=== PATIENT | male | born 1975 | race Caucasian/White ===

== ENCOUNTER → 2016-08-19 09:22 | Emergency (ER) | payer OTHER ==
[~2016-08-19 09:22] MED LIST: Amoxicillin/Clavulanate TAB* 875 MG PO ONE; Ketorolac INJ* 60 MG/2 ML VIAL IM ONE; Ketorolac INJ* 60 MG/2 ML VIAL ONE; Ondansetron ODT TAB* 4 MG PO ONE; oxyCODONE/Acetamin 5/325 MG* TAB PO ONE
--- NOTE | 2016-08-19 09:51 | ED ---
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 It became embedded in his palm and the tip came out at his wrist. His tetanus is up to date and he denies N/T. He is able to move the digits of the hand. - History of Current Complaint Chief Complaint: EDExtremityUpper Stated Complaint: EXTREMITY UPPER Time Seen by Provider: 08/19/16 09:28 Hx Obtained From: Patient Mechanism Of Injury: Direct Blow Onset/Duration: Started Minutes Ago Timing: Constant Severity Initially: Severe Severity Currently: Severe Pain Location: Hand Character: Sharp, Aching Aggravating Factor(s): Movement Alleviating Factor(s): Nothing Associated Signs & Symptoms: Positive: Negative Related History: Dominant Hand Right - Allergies/Home Medications Allergies/Adverse Reactions: Allergies Allergy/AdvReac Type Severity Reaction Status Date / Time glue Allergy Rash Uncoded 08/19/16 11:32 PMH/Surg Hx/FS Hx/Imm Hx Previously Healthy: Yes Infectious Disease History: No Infectious Disease History: Denies: Traveled Outside the [place] in Last 30 Days - Family History Known Family History: Positive: None - Social History Occupation: Employed Full-time Lives: With Family Alcohol Use: Occasionally Substance Use Type: Reports: None Smoking Status (MU): Never Smoked Tobacco Review of Systems Positive: Myalgia Positive: Other - nail into left palm, exiting on dorsom of wrist. Negative: Paresthesia, Numbness All Other Systems Reviewed And Are Negative: Yes Physical Exam Triage Information Reviewed: Yes Vital Signs On Initial Exam: Initial Vitals Temp 97.6 F 08/19/16 09:24 Vital Signs Reviewed: Yes Appearance: Positive: Well-Appearing, Well-Nourished, Pain Distress Skin: Positive: Warm, Skin Color Reflects Adequate Perfusion, Dry, Tender - nail into left palm, exiting on dorsum of wrist, Soft Head/Face: Positive: Normal Head/Face Inspection Eyes: Positive: EOMI, SUSAN, Conjunctiva Clear ENT: Positive: Hearing grossly normal Respiratory/Lung Sounds: Positive: Breath Sounds Present Cardiovascular: Positive: RRR Musculoskeletal: Positive: Limited @, Pain @. Negative: Edema Left Neurological: Positive: Sensory/Motor Intact, Alert, Oriented to Person Place, Time, NV Bundle Intact Distally, Normal Gait Psychiatric: Positive: Affect/Mood Appropriate AVPU Assessment: Alert Procedures - Procedure Summary Procedure Summary: Left palm was injected with 2% lidocaine and needle nose pliers were used to extract the 2 inch nail from the palm. The nail was removed without incident and patient tolerated well. - Splinting Location: left wrist Hand-Made Type: orthoglass Splint: ulnar Pre-Proc Neuro Vasc Exam: normal Post-Proc Neuro Vasc Exam: normal Diagnostics - Vital Signs Vital Signs Temp Pulse Resp BP Pulse Ox 08/19/16 09:25 97.6 F 79 20 128/97 100 08/19/16 09:24 97.6 F - Laboratory Lab Statement: Any lab studies that have been ordered have been reviewed, and results considered in the medical decision making process. - Radiology No standard instances Xray Interpretation: Positive (See Comments) - nail in carpals to metacarpals Radiology Interpretation Completed By: Radiologist - CT No standard instances CT Interpretation: Positive (See Comments) CT Interpretation Completed By: Radiologist Course/Dx - Diagnoses Differential Diagnosis/HQI/PQRI: Positive: Arthritis, Bursitis, Contusion, Fracture (Closed), Laceration, Strain, Sprain Provider Diagnoses: Injury of left hand by nail gun Discharge - Discharge Plan Condition: Stable Disposition: HOME Prescriptions: Amoxicillin/Clavulanate TAB* [Augmentin TAB 875*] 875 mg PO BID #27 tab oxyCODONE/Acetamin 5/325 MG* [Percocet 5/325 TAB*] 1 tab PO Q6H PRN #12 tab MDD 4 PRN Reason: Pain Patient Education Materials: Soft Tissue Foreign Body (ED) Referrals: Jordy Hdz MD [Medical Doctor] - Additional Instructions: Keep your splint clean, dry and intact at all times. Elevate your hand above your heart to decrease swelling and pain. Use ibuprofen 600mg three times daily with meals for the next 3-5 days to decrease swelling and pain as well. Use the pain pill for uncontrolled pain. Take your antibiotic until it is completely gone. Call Dr. Sam's office with orthopedics today for evaluation in the next 1-3 days. Return to the emergency department if your symptoms worsen.
--- NOTE | 2016-08-19 10:13 | RAD ---
INDICATION: Left hand injury. TECHNIQUE: 4 views of the left hand were obtained. FINDINGS: The bones are in normal alignment. Joint spaces appear maintained. There is a metallic foreign body consistent with a nail extending through the wrist. This enters on the volar aspect of the wrist and extends through the region of the carpal metacarpal area to the posterior aspect of the wrist extending through the posterior skin surface. The exact course of the nail is uncertain although may extend through the carpal metacarpal joint. The results of this exam were discussed with the referring clinician. IMPRESSION: NAIL EXTENDING TO THE WRIST DESCRIBED. RECOMMEND A CT OF THE WRIST FOR FURTHER EVALUATION.
--- NOTE | 2016-08-19 11:22 | RAD ---
Indication: Traumatic injury with nail projecting from volar to dorsal through the hand with involvement of the capitate and possibly the carpometacarpal articulation. Comparison: Hand radiograph of the same date. Technique: Noncontrast CT LEFT hand. Multiplanar reformation. Report: The examination is obtained following removal of the nail. Residual 0.7 cm length fragment of the nail persists at the dorsal aspect of the capitate. An additional 0.6 cm fragment of the nail persists at the volar soft tissues at the cephalocaudal level of the proximal metaphysis of the fourth metacarpal 0.3 cm deep to the volar skin surface. The nail tract extends through the carpal metacarpal articulations at the confluence of the capitate, hamate, and bases of the third and fourth metacarpals. Small foci of subcutaneous emphysema both the volar and dorsal. Aside from the nail tract there is no evidence for osseous fracture. Normal articular alignment. IMPRESSION: Multiple residual metallic foreign body fragments remain in the hand as described.
[2016-08-19 12:57] VITALS: BP 134/75
== END | disposition home or self-care (01) ==
LOC: MERGE 09:22 → ED 09:22
DX: S69.92XA Unspecified injury of left wrist, hand and finger(s), initial encounter (principal); W29.4XXA Contact with nail gun, initial encounter; Y93.9 Activity, unspecified; Y92.9 Unspecified place or not applicable; Y99.9 Unspecified external cause status
CPT/HCPCS: 99282; A9270-GY; J1885

== ENCOUNTER 2016-08-21 08:42 | Emergency (ER) | payer OTHER ==
[2016-08-21 08:51] VITALS: BP 124/65
--- NOTE | 2016-08-21 09:22 | UC ---
Skin Complaint HPI - HPI Summary HPI Summary: left hand swelling redness, pain x 3 days + injury at work 3 days ago , nail went in to his hand and came out of the other side, nail was removed at the urgent care, the left hand became red, swollen, painful, no fever, no chills - History of Current Complaint Chief Complaint: UCWounds Time Seen by Provider: 08/21/16 08:46 Stated Complaint: HAND INJURY Hx Obtained From: Patient Onset/Duration: Gradual Onset, Lasting Days, Still Present Timing: Constant Onset Severity: Moderate Current Severity: Moderate Location: Hand (Left) Character: Swelling, Pain, Redness Aggravating: Touch Alleviating: Nothing Associated Signs & Symptoms: Positive: Tenderness - Allergy/Home Medications Allergies/Adverse Reactions: Allergies Allergy/AdvReac Type Severity Reaction Status Date / Time glue Allergy Rash Uncoded 08/19/16 11:32 Home Medications: Home Medications Ibuprofen [Ibuprofen 200 MG] 08/21/16 [History] Review of Systems Constitutional: Negative Skin: Negative Eyes: Negative ENT: Negative Respiratory: Negative Cardiovascular: Negative Gastrointestinal: Negative All Other Systems Reviewed And Are Negative: Yes PMH/Surg Hx/FS Hx/Imm Hx Previously Healthy: Yes - Surgical History Surgical History: None - Family History Known Family History: Positive: None Negative: Diabetes - Social History Alcohol Use: Daily Alcohol Amount: a few beers/day Substance Use Type: None Smoking Status (MU): Never Smoked Tobacco - Immunization History Most Recent Tetanus Shot: not sure Physical Exam Triage Information Reviewed: Yes Appearance: Well-Appearing, No Pain Distress, Well-Nourished Vital Signs: Initial Vital Signs Temp 98.2 F 08/21/16 08:45 Pulse 53 08/21/16 08:45 Resp 16 08/21/16 08:45 BP 124/65 08/21/16 08:45 Pulse Ox 100 08/21/16 08:45 Vital Signs Reviewed: Yes Eyes: Positive: Conjunctiva Clear ENT: Positive: Normal ENT inspection, Hearing grossly normal, Pharynx normal Neck exam: Normal Respiratory: Positive: Chest non-tender, Lungs clear, Normal breath sounds Cardiovascular: Positive: RRR, No Murmur Musculoskeletal: Positive: Other: - left hand : + swelling, erythema, tenderness , limited ROM due to swelling , Course/Dx - Diagnoses Provider Diagnoses: cellulitis left hand Discharge - Discharge Plan Condition: Stable Disposition: HOME Patient Education Materials: Cellulitis (ED) Additional Instructions: cont. with the current antibiotics joesph wrap, please see ortho saravanan go to ED if getting worse
== END 2016-08-21 09:23 | disposition home or self-care (01) ==
LOC: UCEAST 08:42
DX: L03.114 Cellulitis of left upper limb (principal)
CPT/HCPCS: 99211; G0463

== ENCOUNTER → 2016-08-23 10:23 | Day surgery (SDC) | payer OTHER ==
--- NOTE | 2016-08-22 16:14 | HP ---
PREOPERATIVE HISTORY AND PHYSICAL: DATE OF SURGERY/ADMISSION: 08/23/16 [facility] DATE OF OFFICE VISIT/ENCOUNTER: 08/22/16 ATTENDING SURGEON: Esperanza Reilly MD. (DICTATED BY MARIA JUNIOR) PROCEDURE: Left hand incision and drainage, removal of foreign body. CHIEF COMPLAINT: Nail gun injury to left hand. HISTORY OF PRESENT ILLNESS: This is a 41-year-old male who complains of injury to his left hand that occurred on 08/19/16. He reports with a nail gun at his friend's house and he accidentally shot the nail through palm of his hand that exited the dorsal aspect of the hand. He was seen in the emergency room at [facility] and the nail was removed, a couple of pieces have remained stuck in his hand. He had a CT scan, which defined the pieces very well and showed no specific fractures. He has since developed redness, swelling , and pain on the palmar surface of the hand and the dorsal surface. He is complaining of some numbness in his thumb and tingling in his other fingers. He is currently on Augmentin and ciprofloxacin prophylactically. He has had a history of other serious cellulitis. The patient is employed as a kern. This is his nondominant hand. After evaluation by and discussion with Dr. Reilly , he has consented to proceed with surgical intervention at this time in the form of a left hand incision and drainage and removal of foreign body. PAST MEDICAL HISTORY: 1. Hypercholesterolemia. 2. Chronic back pain. PAST SURGICAL HISTORY: 1. Hernia repair as an . 2. Burson teeth extraction. CURRENT MEDICATIONS: Ibuprofen 600 mg t.i.d. p.r.n. ALLERGIES: No known drug allergies. FAMILY MEDICAL HISTORY: Prostate cancer and hypercholesterolemia. 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 He is a former smoker. He quit appropriately 20 years ago, prior to that he smoked a pack per day for 10 years. He denies recreational drug use. He does admit to alcohol use on usually daily basis. REVIEW OF SYSTEMS: General: Negative for fevers, chills or night sweats. No known anesthesia problems. HEENT: Negative for headache, lightheadedness or syncopal episodes. Integumentary: Positive for puncture wounds, left hand. Negative for other abrasions, lesions or open wounds. Cardiothoracic: Negative for hypertension, chest pain, palpitations, or edema. Pulmonary: Negative for shortness of breath with exertion, chronic cough or COPD. GI: Negative for nausea, vomiting, diarrhea, constipation or GERD. : Negative for nocturia, urinary frequency, urgency, history of UTIs or kidney problems. Musculoskeletal: Positive for current complaint. Positive for chronic back pain. Neurologic: Negative for paresthesias, numbness, history of seizures, stroke or epilepsy. Endocrine: Negative for diabetes or thyroid issues. Hematologic: Negative for easy bruising, anemia, excessive bleeding or history of DVT. Infectious Disease: Negative for history of MRSA, hepatitis C or HIV. PHYSICAL EXAMINATION GENERAL: Well-developed, well-nourished 41-year-old male, in no acute distress. VITAL SIGNS: Height is 6 feet tall, weight 175 pounds. Pulse rate 56, blood pressure 120/80. HEENT: Normocephalic, atraumatic. Pupils are equal, round, and reactive to light and accommodation. Extraocular movements are intact. NECK: Supple. No palpable lymph nodes. Throat is clear. PULMONARY: Lungs are clear to auscultation bilaterally. No wheezes, rales, or rhonchi. CARDIOVASCULAR: Regular rate and rhythm. S1 and S2. No murmurs, rubs or gallops. No edema. ABDOMEN: Positive bowel sounds, soft, nontender. NEUROLOGIC: Alert and oriented x3. Cranial nerves II through XII are intact. Sensation is intact to light touch. PERIPHERAL VASCULAR: 2+ radial and ulnar pulses. Negative Andres test. MUSCULOSKELETAL: On exam of the left upper extremity and his left hand, he has sealed entry and exit wound in his hands. There are surrounding erythema and swelling. It is radiating proximally. He can flex and extend his fingers well. He has some decreased sensation, especially in his thumb and at the tip of his index finger. Sensation in the ulnar distribution is normal. He has full flexion and extension of his fingers and all of his tendons are functioning properly. IMAGING STUDIES: CT scan showed two retained foreign bodies. IMPRESSION: Left hand status post nail gun injury with retained foreign bodies causing cellulitis and some median nerve irritation. PLAN: The patient is scheduled to undergo a left hand incision and drainage and foreign body removal with Dr. Reilly on 08/23/16. He will return to the office 10 to 14 days postop for followup and suture removal. A prescription for Percocet was e-scribed to the patient's pharmacy for postoperative pain management. MARIA JUNIOR [id number]/[facility] #: [id number] MTDD
[~2016-08-23 10:23] MED LIST changes: -Amoxicillin/Clavulanate TAB* 875 MG PO ONE; +Buffered Lidocaine 0.9% SYRIN* 5 ML/SYR SYRINGE INTRADERM ONE; +DiMENhydriNATE IV* 50 MG/ML VIAL IV PUSH PRN; +Famotidine IV* 10 MG/ML 2 ML (20 mg) IV ONE; +Famotidine IV* 10 MG/ML 2 ML (20 mg) ONE; +Ketorolac INJ* 30 MG/ML 1 ML VIAL ONE; -Ketorolac INJ* 60 MG/2 ML VIAL IM ONE; -Ketorolac INJ* 60 MG/2 ML VIAL ONE; +Lidocaine 1% INJ* 10 MG/ML 30 ML SDV ONE; +Lidocaine 2% PF * 5 ML VIAL ONE; +Midazolam* 1 MG/ML 5 ML VIAL (5 MG) ONE; +Ondansetron INJ* 2 MG/ML VIAL ONE; -Ondansetron ODT TAB* 4 MG PO ONE; +Propofol* 10 MG/ML 20 ML BTL IV PUSH ONE; +fentaNYL* 50 MCG/ML 2 ML VIAL (100 MCG VIAL) ONE; +oxyCODONE/Acetamin 5/325 MG* TAB ONE; -oxyCODONE/Acetamin 5/325 MG* TAB PO ONE
[2016-08-23] MEDS: oxyCODONE/Acetamin 5/325 MG* TAB PO PRN ×2 (13:56→14:37)
[2016-08-23 16:21] VITALS: BP 105/73
--- NOTE | 2016-08-24 05:51 | OP ---
DATE OF OPERATION: 08/23/16 - [facility] DATE OF : 71 SURGEON: Esperanza Reilly MD DRY WALL NAILER: MARIA Soriano ANESTHESIOLOGIST: Marianne Ramirez MD ANESTHESIA: Local, MAC. PRE-OP DIAGNOSIS: Foreign body in the left hand with subsequent cellulitis and possible median nerve injury. POST-OP DIAGNOSIS: Foreign body in the left hand with cellulitis. OPERATIVE PROCEDURE: Left hand I and D, foreign body removal, median nerve exploration and decompression. ESTIMATED BLOOD LOSS: Zero. TOURNIQUET TIME: Was about 30 minutes. 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 He has been treated with Augmentin and Cipro, and the cellulitis has improved with the addition of the Cipro; however, his thumb is numb, so he presents for I and D of the left hand and removal of foreign body. DESCRIPTION OF PROCEDURE: The patient was brought to the operating room, was given a sedation anesthetic, and local infiltration with 10 cc of 1% plain lidocaine in the palm and the dorsal aspect of his left hand. The skin in his left hand and the forearm was prepped and draped in the usual sterile fashion. The hand and forearm were exsanguinated and the tourniquet elevated to 250 mmHg. A small dorsal incision was made longitudinal over the exit site of the wound of the nail. We dissected bluntly through the subcutaneous tissue. The extensor tendons were retracted. The hole in the capitate created by the nail was located. On the CT scan, there was a metallic foreign body in this location , but we were unable to find it, and with the aid of the C-arm, we could see that it was no longer there. The wound was copiously irrigated with saline including the hole in the capitate. Next, a longitudinal incision was made in the palm in the area of the entry site and the metallic foreign body was located and removed. It was decided that in order to completely evaluate the sensory nerve to the thumb, a carpal tunnel release was appropriate additionally to decompress the nerve and to clean out the carpal tunnel and tendons where the nail had gone through was necessary. The transverse carpal ligament was divided sharply with a knife. The median nerve was then carefully dissected out through the entire length of the carpal tunnel and distal to all of its branches. The branches were all intact. The superficial and deep palmar arches were also intact. The wound was copiously irrigated with saline. Skin edges of both wounds were reapproximated with 4-0 nylon suture. The wound was dressed with Xeroform, 4 x 4, Webril, and an Demetrius wrap. The patient tolerated the procedure well and was brought to the recovery room in good condition. [id number]/[facility] #: [id number] [facility] CENTERViri
--- NOTE | 2016-08-26 10:24 | RAD ---
INDICATION: Left hand foreign body removal. COMPARISON: Comparison is made with a prior CT of the left hand and x-ray of the left hand from August 19, 2016. TECHNIQUE: 1 minute and 8 seconds of intermittent fluoroscopic guidance were provided and 8 spot films of the left hand were obtained in the operating room. FINDINGS: The films demonstrate removal of metallic foreign bodies from the capitate bone and volar soft tissues. IMPRESSION: INTRAOPERATIVE CONTROL FILMS. CPT II Codes: 6045F
== END | disposition home or self-care (01) ==
LOC: OREAST 10:23
PROVIDERS: ATTEND Orthopaedic Surgery
PROC: 01N50ZZ Release Median Nerve, Open Approach (ICD-10-PCS; principal; 2016-08-23 11:30)
DX: S61.442A Puncture wound with foreign body of left hand, initial encounter (principal); L03.114 Cellulitis of left upper limb; W29.4XXA Contact with nail gun, initial encounter; Y92.9 Unspecified place or not applicable; E78.00 Pure hypercholesterolemia, unspecified; Z87.891 Personal history of nicotine dependence
CPT/HCPCS: 76000; 88300; A9270-GY; J1885; J2001; J2250; J2405; J2704; J3010

== ENCOUNTER 2018-08-15 17:50 | Emergency (ER) | payer OTHER ==
[2018-08-15 18:04] VITALS: BP 149/89
--- NOTE | 2018-08-15 18:04 | UC ---
Lower Extremity/Ankle HPI - HPI Summary HPI Summary: 43 yo male presents with puncture wound. He tells me that earlier today he was working and stepped on a stefania nail. Nail punctured the bottom of his left toe through his shoe. He removed the nail immediately and is confident that it was intact. Has had some mild pain to the area since. He is concerned about infection. He states he thinks his tetanus is up to date, but isn't sure. - History of Current Complaint Stated Complaint: LEFT FOOT INJURY Time Seen by Provider: 08/15/18 18:01 Hx Obtained From: Patient Onset/Duration: Sudden Onset Severity Initially: Moderate Severity Currently: Mild Pain Intensity: 2 Pain Scale Used: 0-10 Numeric - Allergies/Home Medications Allergies/Adverse Reactions: Allergies Allergy/AdvReac Type Severity Reaction Status Date / Time Epoxy Grout Allergy See Comment Uncoded 08/15/18 18:04 PMH/Surg Hx/FS Hx/Imm Hx - Additional Past Medical History Additional PMH: None - Surgical History Surgical History: None - Family History Known Family History: Positive: None Negative: Diabetes - Social History Lives: With Family Alcohol Use: Daily Alcohol Amount: 1-2 beers/day Substance Use Type: None Smoking Status (MU): Never Smoked Tobacco Amount Used/How Often: smoked for 10 yrs age [age] yrs old, up to 1 ppd When Did the Patient Quit Smoking/Using Tobacco: approx 17 yrs ago - Immunization History Most Recent Tetanus Shot: not sure Review of Systems All Other Systems Reviewed And Are Negative: Yes Constitutional: Positive: Negative Skin: Positive: Other - Left foot punture wound Respiratory: Positive: Negative Cardiovascular: Positive: Negative Neurovascular: Positive: Negative Neurological: Positive: Negative Psychological: Positive: Negative Physical Exam - Summary Physical Exam Summary: GENERAL: NAD. WDWN. No pain distress. SKIN: LEFT foot: plantar aspect at base of great toe with 1mm puncture wound with mild erythema and edema. NTTP. No drainage or streaking. CHEST: No accessory muscle use. Breathing comfortably and in no distress. CV: Pulses intact PT and DP. Cap refill <2seconds MSK: FROM left great toe NEURO: Alert. Sensations intact and symmetric B/L LEs PSYCH: Age appropriate behavior. Triage Information Reviewed: Yes Vital Signs: Vital Signs: Temp Pulse Resp BP Pulse Ox 98.6 F 61 18 149/89 98 08/15/18 17:58 08/15/18 17:58 08/15/18 17:58 08/15/18 17:58 08/15/18 17:58 Vital Signs Reviewed: Yes Lower Extremity Course/Dx - Course Course Of Treatment: tdap updated today. Area does not appeared infected at this time, but infection risk is increased with puncture wound. Will rx for keflex and have him monitor the area for any worsening signs. - Differential Dx/Diagnosis Provider Diagnosis: Puncture wound Discharge - Sign-Out/Discharge Documenting (check all that apply): Patient Departure All imaging exams completed and their final reports reviewed: No - Discharge Plan Condition: Stable Disposition: HOME Prescriptions: Cephalexin CAP* [Keflex CAP*] 500 mg PO BID #10 cap Patient Education Materials: Puncture Wound (DC) Referrals: No Primary Care Phys,NOPCP [Primary Care Provider] - Additional Instructions: If you develop a fever, shortness of breath, chest pain, new or worsening symptoms - please call your PCP or go to the ED immediately. Your blood pressure was high at todays visit. Please see your primary provider within 4 weeks for recheck and re-evaluation. Monitor the area for any signs of infection such as increased pain, redness, swelling, or drainage. If you notice these symptoms - please be rechecked immediately YOUR TETANUS SHOT WAS UPDATED TODAY 08/15/2018 - Billing Disposition and Condition Condition: STABLE Disposition: Home
[2018-08-15] MEDS ORDERED: Tetan/Diph/Pertus SYR(Tdap)* 0.5 ML SYR(BOOSTRIX) use SYR IM ONE (18:12)
== END 2018-08-15 18:38 | disposition home or self-care (01) ==
LOC: UCEAST 17:50
DX: S91.132A Puncture wound without foreign body of left great toe without damage to nail, initial encounter (principal); W22.8XXA Striking against or struck by other objects, initial encounter; Y92.9 Unspecified place or not applicable; Z23 Encounter for immunization
CPT/HCPCS: 90471; 90715; 99212; G0463